=== PATIENT | male | born 1930 | race Two or more races ===

== ENCOUNTER 2016-03-21 21:13 | Inpatient (IN) | payer MEDICARE, OTHER ==
[~2016-03-21] VITALS: Ht 175.3 cm; Wt 67.1 kg
[2016-03-21 22:45] LABS: DIFF TOTAL % 100 %; EOSINOPHILS # (AUTO) 0.1 /CMM (0.0-0.7); EOSINOPHILS % (AUTO) 2.6 % (0.0-6.0); HEMATOCRIT 27 % (39-51); LYMPHOCYTES # (AUTO) 0.8 /CMM (0.8-4.8); MEAN CORPUSCULAR HEMOGLOBIN 30 PG (26.0-33.0); MEAN CORPUSCULAR HGB CONC 33 g/dl (31.0-36.0); MEAN CORPUSCULAR VOLUME 91 fL (80-96); MONOCYTES # (AUTO) 0.2 /CMM (0.1-1.30); MONOCYTES % (AUTO) 3.6 % (2.0-12.0); NEUTROPHILS # (AUTO) 3.5 /CMM (1.8-8.9); NEUTROPHILS % (AUTO) 75.8 % (43.0-81.0); PLATELET COUNT (AUTO) 103 /CMM (150-450); RED BLOOD CELL COUNT(AUTO) 2.95 MIL/uL (4.5-6.0); WHITE BLOOD COUNT (AUTO) 4.6 K/uL (4.3-11.0)
[2016-03-21 23:01] LABS: INR 1.11 (0.87-1.13); TROPONIN I < 0.017 ng/mL (0.00-0.056)
[2016-03-21 23:06] LABS: ALANINE AMINOTRANSFERASE 50 U/L (12-78); ALBUMIN 2.6 g/dL (3.4-5.0); ANION GAP 10 (5-14); ASPARTATE AMINOTRANSFERASE 36 U/L (15-37); BILIRUBIN,DIRECT 0.1 mg/dL (0.0-0.2); BILIRUBIN,TOTAL 0.2 mg/dL (0.2-1.0); CALCIUM, SERUM 8.5 mg/dL (8.5-10.1); CARBON DIOXIDE 28 mmol/L (21-32); CHLORIDE 112 mmol/L (98-107); CREATININE 2.6 mg/dL (0.6-1.3); GLUCOSE 163 mg/dL (74-106); INDIRECT BILIRUBIN 0.1 mg/dL (0.0-1.1); SODIUM SERUM 144 mmol/L (136-145); TOTAL PROTEIN, SERUM 7.1 g/dL (6.4-8.2); UREA NITROGEN, BLOOD 36 mg/dL (7-18)
[2016-03-21 23:07] LABS: POTASSIUM 6.5 mmol/L (3.5-5.1)
[2016-03-21] MEDS ORDERED: LEVOFLOXACIN 500 MG /D5W 100ML 100 ML IV ONE (23:12)
[2016-03-21] MEDS ORDERED: SODIUM BICARBONATE SYR 50 MEQ/50 ML DISP.SYRIN ONE (23:12)
[2016-03-21] MEDS ORDERED: DEXTROSE 50%-WATER 50 ML DISP.SYRIN ONE (23:12)
[2016-03-21] MEDS ORDERED: IV SET PRIMARY PUMP SET 1 EA INFUS.SET MC ONE (23:12)
[2016-03-21] MEDS ORDERED: INSULIN REGULAR, HUMAN 100 UNIT/ML 10 ML VIAL ONE (23:12)
[2016-03-21] MEDS ORDERED: ALBUTEROL FS 2.5 MG/3 ML VIAL.NEB ONE (23:17)
[2016-03-21] MEDS ORDERED: DEXTROSE 50%-WATER 50 ML DISP.SYRIN IV ONE (23:30)
[2016-03-21] MEDS ORDERED: INSULIN REGULAR, HUMAN 100 UNIT/ML 10 ML VIAL IV ONE (23:30)
[2016-03-21] MEDS ORDERED: SODIUM BICARBONATE SYR 50 MEQ/50 ML DISP.SYRIN IV ONE (23:30)
[2016-03-21] MEDS ORDERED: ALBUTEROL FS 2.5 MG/3 ML VIAL.NEB NEB ONE (23:30)
[2016-03-21] MEDS ORDERED: LEVOFLOXACIN 500 MG /D5W 100ML 500 MG/100 ML PIGGYBACK IV ONE (23:30)
[2016-03-21 23:39] LABS: ABG BASE EXCESS 1.5 mmol/L; ABG HCO3 26.4 mmol/L; ABG PCO2 43.3 mmHg (35.0-45.0); ABG PH 7.403 (7.350-7.450); ABG PO2 89.4 mmHg (75.0-100.0); ABG TOTAL HEMOGLOBIN 8.6 G/dL (13.5-18.0); ALLEN TEST Pass; AaDO2 8.5 mmHg
[2016-03-21] MEDS ORDERED: DIVA500T2 PO (23:43)
[2016-03-21] MEDS ORDERED: MEMA5TAB PO (23:43)
[2016-03-21] MEDS ORDERED: RISP0.5T2 PO (23:43)
[2016-03-21] MEDS ORDERED: EZET10TA PO (23:43)
[2016-03-21] MEDS ORDERED: ASPI81TA2 PO (23:43)
[2016-03-21] MEDS ORDERED: MELA3TAB PO (23:43)
[2016-03-21] MEDS ORDERED: MULT-70 PO (23:43)
[2016-03-21] MEDS ORDERED: *INS REG3 SQ (23:43)
[2016-03-21] MEDS ORDERED: ASCO500C16 PO (23:43)
[2016-03-21] MEDS ORDERED: LATA2.5D2 EACHEYE (23:43)
[2016-03-21] MEDS ORDERED: ATOR10TA PO (23:43)
[2016-03-21] MEDS ORDERED: FERR-58 PO (23:43)
[2016-03-21] MEDS ORDERED: BISA10SU61 RC (23:43)
[2016-03-21] MEDS ORDERED: ACET-868 PO ×2 (23:43)
[2016-03-21] MEDS ORDERED: LORA-258 PO (23:43)
[2016-03-21] MEDS ORDERED: FINA5TAB4 PO (23:43)
[2016-03-21] MEDS ORDERED: TAMS-12 PO (23:43)
[2016-03-22] VITALS (44 sets, daily range): BP systolic 95–156; BP diastolic 42–106
[2016-03-22] MEDS ORDERED: FUROSEMIDE 40 MG/4 ML VIAL IV ONE (01:00)
[2016-03-22] MEDS ORDERED: ONDANSETRON HCL/PF 4 MG/2 ML VIAL IV PRN (01:00)
[2016-03-22] MEDS ORDERED: ZOLPIDEM TARTRATE 5 MG TABLET PO PRN (01:00)
[2016-03-22] MEDS ORDERED: SODIUM POLYSTYRENE SULFONATE 15 G/60 ML BOTTLE PO ONE ×2 (01:00→15:00)
[2016-03-22] MEDS ORDERED: FUROSEMIDE 40 MG/4 ML VIAL ONE (01:23)
[2016-03-22] MEDS ORDERED: IV D5W 1,000 ML IV ONE (01:24)
[2016-03-22] MEDS ORDERED: SODIUM POLYSTYRENE SULFONATE 15 G/60 ML BOTTLE ONE (01:24)
[2016-03-22] MEDS ORDERED: SODIUM BICARBONATE SYR 50 MEQ/50 ML DISP.SYRIN ONE (01:24)
[2016-03-22] MEDS ORDERED: IV SET PRIMARY PUMP SET 1 EA INFUS.SET MC ONE (01:31)
[2016-03-22] MEDS: Sodium Bicarbonate 100 MEQ in IV D5W 1,000 ML IV PRN ×2 (01:37→12:52)
[2016-03-22 02:37] LABS: CALCIUM, SERUM 8.2 mg/dL (8.5-10.1); CREATININE 2.5 mg/dL (0.6-1.3); POTASSIUM 5.5 mmol/L (3.5-5.1)
[2016-03-22 05:05] LABS: BASOPHILS % (AUTO) 0.1 % (0.0-2.0); DIFF TOTAL % 100 %; EOSINOPHILS # (AUTO) 0.1 /CMM (0.0-0.7); EOSINOPHILS % (AUTO) 1.4 % (0.0-6.0); HEMATOCRIT 25 % (39-51); HEMOGLOBIN 8.2 g/dL (13.5-17.5); LYMPHOCYTES # (AUTO) 0.5 /CMM (0.8-4.8); LYMPHOCYTES % (AUTO) 9.2 % (20.0-44.0); MEAN CORPUSCULAR HEMOGLOBIN 31 PG (26.0-33.0); MEAN CORPUSCULAR HGB CONC 33 g/dl (31.0-36.0); MEAN CORPUSCULAR VOLUME 92 fL (80-96); MONOCYTES # (AUTO) 0.2 /CMM (0.1-1.30); MONOCYTES % (AUTO) 3.5 % (2.0-12.0); NEUTROPHILS # (AUTO) 4.8 /CMM (1.8-8.9); NEUTROPHILS % (AUTO) 85.8 % (43.0-81.0); PLATELET COUNT (AUTO) 107 /CMM (150-450); RED BLOOD CELL COUNT(AUTO) 2.69 MIL/uL (4.5-6.0); WHITE BLOOD COUNT (AUTO) 5.6 K/uL (4.3-11.0)
[2016-03-22 05:26] LABS: ALBUMIN 2.4 g/dL (3.4-5.0); BILIRUBIN,TOTAL 0.3 mg/dL (0.2-1.0); CALCIUM, SERUM 8.2 mg/dL (8.5-10.1); CREATININE 2.6 mg/dL (0.6-1.3); PHOSPHORUS 3.5 mg/dL (2.5-4.9); POTASSIUM 5.3 mmol/L (3.5-5.1); TOTAL PROTEIN, SERUM 6.8 g/dL (6.4-8.2)
[2016-03-22] MEDS: BLOOD SUGAR DIAGNOSTIC 1 EACH STRIP IN SCH ×4 (07:49→21:39)
[2016-03-22] MEDS ORDERED: DIVA250T6 PO (09:07)
[2016-03-22] MEDS ORDERED: MULT-659 PO (09:07)
[2016-03-22] MEDS ORDERED: DOCU-25 PO (09:07)
[2016-03-22] MEDS ORDERED: RISP0.2515 PO (09:07)
[2016-03-22 10:44] LABS: KETONES,URINE NEGATIVE (NEGATIVE); LEUKOCYTE ESTERASE ,URINE 3+ (NEGATIVE); PH,URINE 6.5 (5.0-8.0)
[2016-03-22 10:45] LABS: ADD UA MICROSCOPIC YES
[2016-03-22 10:54] LABS: ADD URINE CULTURE YES
[2016-03-22] MEDS ORDERED: LEVOFLOXACIN 500 MG /D5W 100ML 500 MG in PREMIX 1 EA IV SCH (15:00)
[2016-03-22] MEDS: ATORVASTATIN 10 MG TABLET PO SCH (22:15)
[2016-03-22] MEDS: LEVOFLOXACIN 250 MG /D5W 50 ML 250 MG in PREMIX 1 EA IV SCH (22:16)
[2016-03-22] MEDS ORDERED: SECONDARY IV SET 1 EA INFUS.SET MC ONE (22:21)
[2016-03-23] VITALS (37 sets, daily range): BP systolic 76–125; BP diastolic 33–68
[2016-03-23] MEDS: Sodium Bicarbonate 100 MEQ in IV D5W 1,000 ML IV PRN (04:08)
[2016-03-23 05:20] LABS: BASOPHILS % (AUTO) 0.1 % (0.0-2.0); DIFF TOTAL % 100 %; EOSINOPHILS % (AUTO) 0.3 % (0.0-6.0); HEMATOCRIT 28 % (39-51); HEMOGLOBIN 9.3 g/dL (13.5-17.5); LYMPHOCYTES # (AUTO) 0.6 /CMM (0.8-4.8); LYMPHOCYTES % (AUTO) 5.5 % (20.0-44.0); MEAN CORPUSCULAR HEMOGLOBIN 30 PG (26.0-33.0); MEAN CORPUSCULAR HGB CONC 33 g/dl (31.0-36.0); MEAN CORPUSCULAR VOLUME 92 fL (80-96); MONOCYTES # (AUTO) 0.3 /CMM (0.1-1.30); MONOCYTES % (AUTO) 3.1 % (2.0-12.0); NEUTROPHILS # (AUTO) 9.3 /CMM (1.8-8.9); PLATELET COUNT (AUTO) 118 /CMM (150-450); RED BLOOD CELL COUNT(AUTO) 3.08 MIL/uL (4.5-6.0); WHITE BLOOD COUNT (AUTO) 10.2 K/uL (4.3-11.0)
[2016-03-23 05:32] LABS: CALCIUM, SERUM 7.5 mg/dL (8.5-10.1); CREATININE 2.5 mg/dL (0.6-1.3); PHOSPHORUS 3.2 mg/dL (2.5-4.9); POTASSIUM 3.9 mmol/L (3.5-5.1)
[2016-03-23] MEDS: BLOOD SUGAR DIAGNOSTIC 1 EACH STRIP IN SCH ×4 (06:45→21:46)
[2016-03-23] MEDS: ASPIRIN 81 MG TAB.CHEW PO SCH (09:12)
[2016-03-23] MEDS ORDERED: IV NS 0.9% 1,000 ML IV PRN (09:54)
[2016-03-23] MEDS ORDERED: Magnesium 1GM/D5W 100ML PREMIX 100 ML IV SCH (12:00)
[2016-03-23] MEDS: Z GUARD REMEDY 2 OZ OINT TP PRN (12:50)
[2016-03-23] MEDS: DEXTROSE 50%-WATER 50 ML DISP.SYRIN IV PRN ×3 (12:51→17:48)
[2016-03-23] MEDS: Z GUARD REMEDY 2 OZ OINT TP SCH (12:51)
[2016-03-23] MEDS ORDERED: IV NS 0.9% 500 ML IV ONE (14:30)
[2016-03-23] MEDS ORDERED: NOREPINEPHRINE 8 MG in IV D5W 500 ML IV PRN (14:30)
[2016-03-23] MEDS: IV D5/ 0.9% NACL 1,000 ML IV PRN (19:11)
[2016-03-23] MEDS: ATORVASTATIN 10 MG TABLET PO SCH (21:46)
[2016-03-23] MEDS: LEVOFLOXACIN 250 MG /D5W 50 ML 250 MG in PREMIX 1 EA IV SCH (23:50)
[2016-03-24] VITALS (30 sets, daily range): BP systolic 99–146; BP diastolic 36–77
[2016-03-24] MEDS ORDERED: ATROPINE SULFATE 1 MG/10 ML DISP.SYRIN IV PRN
[2016-03-24 04:52] LABS: BASOPHILS % (AUTO) 0.2 % (0.0-2.0); DIFF TOTAL % 100 %; EOSINOPHILS % (AUTO) 0.2 % (0.0-6.0); HEMATOCRIT 24 % (39-51); LYMPHOCYTES # (AUTO) 1.1 /CMM (0.8-4.8); LYMPHOCYTES % (AUTO) 10.5 % (20.0-44.0); MEAN CORPUSCULAR HEMOGLOBIN 30 PG (26.0-33.0); MEAN CORPUSCULAR HGB CONC 33 g/dl (31.0-36.0); MEAN CORPUSCULAR VOLUME 91 fL (80-96); MONOCYTES # (AUTO) 0.2 /CMM (0.1-1.30); MONOCYTES % (AUTO) 2.2 % (2.0-12.0); NEUTROPHILS # (AUTO) 9.1 /CMM (1.8-8.9); NEUTROPHILS % (AUTO) 86.9 % (43.0-81.0); PLATELET COUNT (AUTO) 91 /CMM (150-450); RED BLOOD CELL COUNT(AUTO) 2.66 MIL/uL (4.5-6.0); WHITE BLOOD COUNT (AUTO) 10.5 K/uL (4.3-11.0)
[2016-03-24 05:09] LABS: CREATININE 2.4 mg/dL (0.6-1.3); PHOSPHORUS 3.6 mg/dL (2.5-4.9)
[2016-03-24 05:18] LABS: BAND % (MANUAL) 9 % (0.0-5.0); EOSINOPHILS % (MANUAL) 1 % (0-4); LYMPHOCYTES % (MANUAL) 15 % (16-48)
[2016-03-24 05:19] LABS: ANISOCYTOSIS 1+
[2016-03-24 05:23] LABS: PLATELET ESTIMATE DECREASED
[2016-03-24] MEDS: BLOOD SUGAR DIAGNOSTIC 1 EACH STRIP IN SCH ×4 (07:53→21:39)
[2016-03-24] MEDS: Z GUARD REMEDY 2 OZ OINT TP SCH (09:31)
[2016-03-24] MEDS: ASPIRIN 81 MG TAB.CHEW PO SCH (09:31)
[2016-03-24] MEDS: IV D5/ 0.9% NACL 1,000 ML IV PRN (09:58)
[2016-03-24] MEDS: IV D5/0.45 NACL 1,000 ML IV PRN (11:20)
[2016-03-24] MEDS: POTASSIUM CL. PREMIX PERIPHER. 50 ML IV SCH ×2 (11:20→12:24)
[2016-03-24] MEDS: MUPIROCIN OINT 2% 22 GM TUBE TP SCH ×2 (12:23→22:10)
[2016-03-24] MEDS: ATORVASTATIN 10 MG TABLET PO SCH (21:41)
[2016-03-24] MEDS: LEVOFLOXACIN 250 MG /D5W 50 ML 250 MG in PREMIX 1 EA IV SCH (22:10)
[2016-03-25] VITALS (30 sets, daily range): BP systolic 119–175; BP diastolic 48–98
[2016-03-25] MEDS: IV D5/0.45 NACL 1,000 ML IV PRN ×2 (04:24→20:47)
[2016-03-25 04:33] LABS: BASOPHILS % (AUTO) 0.2 % (0.0-2.0); DIFF TOTAL % 100 %; EOSINOPHILS % (AUTO) 0.2 % (0.0-6.0); HEMATOCRIT 24 % (39-51); HEMOGLOBIN 7.9 g/dL (13.5-17.5); LYMPHOCYTES % (AUTO) 11.3 % (20.0-44.0); MEAN CORPUSCULAR HEMOGLOBIN 30 PG (26.0-33.0); MEAN CORPUSCULAR HGB CONC 33 g/dl (31.0-36.0); MEAN CORPUSCULAR VOLUME 90 fL (80-96); MONOCYTES # (AUTO) 0.4 /CMM (0.1-1.30); NEUTROPHILS # (AUTO) 7.5 /CMM (1.8-8.9); NEUTROPHILS % (AUTO) 84.3 % (43.0-81.0); PLATELET COUNT (AUTO) 98 /CMM (150-450); RED BLOOD CELL COUNT(AUTO) 2.64 MIL/uL (4.5-6.0); WHITE BLOOD COUNT (AUTO) 8.9 K/uL (4.3-11.0)
[2016-03-25 05:00] LABS: CALCIUM, SERUM 7.4 mg/dL (8.5-10.1); CREATININE 2.2 mg/dL (0.6-1.3); PHOSPHORUS 2.9 mg/dL (2.5-4.9)
[2016-03-25 05:27] LABS: BAND % (MANUAL) 4 % (0.0-5.0); EOSINOPHILS % (MANUAL) 1 % (0-4); LYMPHOCYTES % (MANUAL) 7 % (16-48); PLATELET ESTIMATE DECREASED
[2016-03-25 05:28] LABS: ANISOCYTOSIS 1+
[2016-03-25] MEDS: BLOOD SUGAR DIAGNOSTIC 1 EACH STRIP IN SCH ×4 (08:16→20:49)
[2016-03-25] MEDS: ASPIRIN 81 MG TAB.CHEW PO SCH (08:30)
[2016-03-25] MEDS: Z GUARD REMEDY 2 OZ OINT TP SCH (08:31)
[2016-03-25] MEDS: Z GUARD REMEDY 2 OZ OINT TP PRN (08:31)
[2016-03-25] MEDS ORDERED: POTASSIUM CHLORIDE 20 MEQ POWDER PACKET GT ONE (09:30)
[2016-03-25] MEDS ORDERED: SECONDARY IV SET 1 EA INFUS.SET MC ONE ×2 (10:01→11:14)
[2016-03-25] MEDS: Magnesium 1GM/D5W 100ML PREMIX 100 ML IV SCH ×3 (10:11→13:31)
[2016-03-25] MEDS: MUPIROCIN OINT 2% 22 GM TUBE TP SCH ×2 (10:11→22:26)
[2016-03-25] MEDS ORDERED: POTASSIUM CL. PREMIX PERIPHER. 50 ML IV SCH (11:00)
[2016-03-25] MEDS: MEROPENEM 500 MG in IV NS 0.9% 50 ML IV SCH ×2 (11:14→22:25)
[2016-03-25 12:47] LABS: INR 1.11 (0.87-1.13)
[2016-03-25] MEDS: INSULIN REGULAR, HUMAN 100 UNIT/ML 3 ML VIAL SQ PRN (13:34)
[2016-03-25] MEDS ORDERED: IPRATROPIUM NEB FS 0.5 MG/2.5 ML AMPUL.NEB NEB PRN (14:30)
[2016-03-25] MEDS ORDERED: ALBUTEROL FS 2.5 MG/3 ML VIAL.NEB NEB PRN (14:30)
[2016-03-25] MEDS: ATORVASTATIN 10 MG TABLET PO SCH (20:49)
[2016-03-26] VITALS (41 sets, daily range): BP systolic 119–176; BP diastolic 52–149
[2016-03-26 05:54] LABS: BASOPHILS # (AUTO) 0.1 /CMM (0.0-0.2); BASOPHILS % (AUTO) 0.8 % (0.0-2.0); DIFF TOTAL % 100 %; EOSINOPHILS % (AUTO) 0.2 % (0.0-6.0); HEMATOCRIT 23 % (39-51); HEMOGLOBIN 7.6 g/dL (13.5-17.5); LYMPHOCYTES # (AUTO) 1.2 /CMM (0.8-4.8); LYMPHOCYTES % (AUTO) 10.2 % (20.0-44.0); MEAN CORPUSCULAR HEMOGLOBIN 29 PG (26.0-33.0); MEAN CORPUSCULAR HGB CONC 33 g/dl (31.0-36.0); MEAN CORPUSCULAR VOLUME 90 fL (80-96); MONOCYTES # (AUTO) 0.2 /CMM (0.1-1.30); MONOCYTES % (AUTO) 1.5 % (2.0-12.0); NEUTROPHILS # (AUTO) 10.3 /CMM (1.8-8.9); NEUTROPHILS % (AUTO) 87.3 % (43.0-81.0); PLATELET COUNT (AUTO) 120 /CMM (150-450); RED BLOOD CELL COUNT(AUTO) 2.62 MIL/uL (4.5-6.0); WHITE BLOOD COUNT (AUTO) 11.8 K/uL (4.3-11.0)
[2016-03-26 06:02] LABS: CALCIUM, SERUM 7.7 mg/dL (8.5-10.1); CREATININE 2.2 mg/dL (0.6-1.3); PHOSPHORUS 2.7 mg/dL (2.5-4.9); POTASSIUM 3.4 mmol/L (3.5-5.1)
[2016-03-26] MEDS ORDERED: LIDOCAINE HCL/PF 1% 30 ML SDV ONE (07:21)
[2016-03-26] MEDS: BLOOD SUGAR DIAGNOSTIC 1 EACH STRIP IN SCH ×4 (07:30→22:08)
[2016-03-26] MEDS ORDERED: IOHEXOL 240MG/ML 0 ML IV ONE (08:22)
[2016-03-26] MEDS: Z GUARD REMEDY 2 OZ OINT TP SCH ×2 (10:19→11:34)
[2016-03-26] MEDS: ASPIRIN 81 MG TAB.CHEW PO SCH (10:19)
[2016-03-26] MEDS: DOXYCYCLINE 100 MG in IV D5W 100 ML IV SCH ×2 (10:19→21:08)
[2016-03-26 10:20] LABS: ABG BASE EXCESS 0.7 mmol/L; ABG HCO3 25.5 mmol/L; ABG PCO2 41.8 mmHg (35.0-45.0); ABG PH 7.404 (7.350-7.450); ABG PO2 64.9 mmHg (75.0-100.0); ABG TOTAL HEMOGLOBIN 11.6 G/dL (13.5-18.0); ALLEN TEST Pass; AaDO2 143.3 mmHg; O2Hb 89.2 % (94.0-97.0)
[2016-03-26] MEDS: MEROPENEM 500 MG in IV NS 0.9% 50 ML IV SCH ×2 (11:34→22:14)
[2016-03-26] MEDS: MUPIROCIN OINT 2% 22 GM TUBE TP SCH ×2 (11:34→22:14)
[2016-03-26] MEDS ORDERED: EPOETIN ALFA (20,000 UNIT) 20,000 UNIT/ML VIAL SQ ONE (12:00)
[2016-03-26 12:48] LABS: IRON, SERUM 20 ug/dl (50-175); PERCENT SATURATION 8 % (14-33); TOTAL IRON BINDING CAPACITY 244 ug/dl (250-450)
[2016-03-26] MEDS: IV D5/0.45 NACL 1,000 ML IV PRN (14:11)
[2016-03-26] MEDS ORDERED: POTASSIUM CL. PREMIX PERIPHER. 50 ML IV SCH (15:00)
[2016-03-26] MEDS ORDERED: FUROSEMIDE 40 MG/4 ML VIAL IV ONE (21:00)
[2016-03-26] MEDS ORDERED: FUROSEMIDE 40 MG/4 ML VIAL IV SCH (21:00)
[2016-03-26] MEDS ORDERED: FUROSEMIDE 40 MG/4 ML VIAL ONE (21:01)
[2016-03-26] MEDS: ATORVASTATIN 10 MG TABLET PO SCH (22:00)
[2016-03-26] MEDS: INSULIN REGULAR, HUMAN 100 UNIT/ML 3 ML VIAL SQ PRN (22:11)
[2016-03-27] VITALS (34 sets, daily range): BP systolic 97–169; BP diastolic 34–83
[2016-03-27 04:59] LABS: DIFF TOTAL % 100 %; HEMATOCRIT 24 % (39-51); HEMOGLOBIN 7.9 g/dL (13.5-17.5); LYMPHOCYTES # (AUTO) 0.8 /CMM (0.8-4.8); LYMPHOCYTES % (AUTO) 3.9 % (20.0-44.0); MEAN CORPUSCULAR HEMOGLOBIN 30 PG (26.0-33.0); MEAN CORPUSCULAR HGB CONC 33 g/dl (31.0-36.0); MEAN CORPUSCULAR VOLUME 90 fL (80-96); MONOCYTES # (AUTO) 0.6 /CMM (0.1-1.30); MONOCYTES % (AUTO) 2.9 % (2.0-12.0); NEUTROPHILS # (AUTO) 18.3 /CMM (1.8-8.9); NEUTROPHILS % (AUTO) 93.2 % (43.0-81.0); PLATELET COUNT (AUTO) 153 /CMM (150-450); RED BLOOD CELL COUNT(AUTO) 2.65 MIL/uL (4.5-6.0); WHITE BLOOD COUNT (AUTO) 19.6 K/uL (4.3-11.0)
[2016-03-27 05:25] LABS: CALCIUM, SERUM 7.8 mg/dL (8.5-10.1); PHOSPHORUS 3.1 mg/dL (2.5-4.9); POTASSIUM 3.2 mmol/L (3.5-5.1)
[2016-03-27] MEDS: IV D5/0.45 NACL 1,000 ML IV PRN ×2 (06:16→22:59)
[2016-03-27] MEDS: BLOOD SUGAR DIAGNOSTIC 1 EACH STRIP IN SCH ×4 (08:09→22:59)
[2016-03-27] MEDS: DOXYCYCLINE 100 MG in IV D5W 100 ML IV SCH (08:10)
[2016-03-27] MEDS: ASPIRIN 81 MG TAB.CHEW PO SCH (09:57)
[2016-03-27] MEDS: MUPIROCIN OINT 2% 22 GM TUBE TP SCH ×2 (10:01→23:00)
[2016-03-27] MEDS: MEROPENEM 500 MG in IV NS 0.9% 50 ML IV SCH ×2 (10:01→22:59)
[2016-03-27] MEDS: ALBUTEROL FS 2.5 MG/3 ML VIAL.NEB NEB SCH ×4 (10:55→23:08)
[2016-03-27] MEDS: IPRATROPIUM NEB FS 0.5 MG/2.5 ML AMPUL.NEB NEB SCH ×4 (10:56→23:08)
[2016-03-27 14:56] LABS: ABG BASE EXCESS 4.4 mmol/L; ABG HCO3 28.2 mmol/L; ABG PCO2 38.5 mmHg (35.0-45.0); ABG PH 7.482 (7.350-7.450); ABG PO2 77.6 mmHg (75.0-100.0); ABG TOTAL HEMOGLOBIN 7.9 G/dL (13.5-18.0); ALLEN TEST Pass; AaDO2 307.9 mmHg; O2Hb 92.8 % (94.0-97.0)
[2016-03-27] MEDS: ACETYLCYSTEINE 10% SOLN 400 MG/4 ML VIAL NEB SCH ×2 (15:08→23:08)
[2016-03-27] MEDS: POTASSIUM CL. PREMIX PERIPHER. 50 ML IV SCH ×3 (15:09→17:20)
[2016-03-27] MEDS: INSULIN REGULAR, HUMAN 100 UNIT/ML 3 ML VIAL SQ PRN ×2 (17:31→23:08)
[2016-03-27] MEDS ORDERED: FEE PK DOSING 1 MIN EA MC ONE (19:38)
[2016-03-27] MEDS ORDERED: VANCOMYCIN 1 GM in IV D5W 250 ML IV SCH (21:00)
[2016-03-27] MEDS ORDERED: SECONDARY IV SET 1 EA INFUS.SET MC ONE (21:24)
[2016-03-27] MEDS: ATORVASTATIN 10 MG TABLET PO SCH (22:59)
[2016-03-28] VITALS (32 sets, daily range): BP systolic 97–163; BP diastolic 35–79
[2016-03-28] MEDS ORDERED: NALOXONE HCL 0.4 MG/ML AMPUL ONE ×2 (02:13)
[2016-03-28] MEDS ORDERED: IV D5W 0 ML IV ONE (02:13)
[2016-03-28] MEDS: ALBUTEROL FS 2.5 MG/3 ML VIAL.NEB NEB SCH ×6 (03:21→23:11)
[2016-03-28] MEDS: IPRATROPIUM NEB FS 0.5 MG/2.5 ML AMPUL.NEB NEB SCH ×6 (03:21→23:11)
[2016-03-28 04:52] LABS: BASOPHILS % (AUTO) 0.2 % (0.0-2.0); DIFF TOTAL % 100 %; EOSINOPHILS % (AUTO) 0.1 % (0.0-6.0); HEMATOCRIT 21 % (39-51); LYMPHOCYTES # (AUTO) 0.9 /CMM (0.8-4.8); LYMPHOCYTES % (AUTO) 7.5 % (20.0-44.0); MEAN CORPUSCULAR HEMOGLOBIN 30 PG (26.0-33.0); MEAN CORPUSCULAR HGB CONC 33 g/dl (31.0-36.0); MEAN CORPUSCULAR VOLUME 91 fL (80-96); MONOCYTES # (AUTO) 0.8 /CMM (0.1-1.30); MONOCYTES % (AUTO) 6.3 % (2.0-12.0); NEUTROPHILS # (AUTO) 10.4 /CMM (1.8-8.9); NEUTROPHILS % (AUTO) 85.9 % (43.0-81.0); PLATELET COUNT (AUTO) 130 /CMM (150-450); RED BLOOD CELL COUNT(AUTO) 2.26 MIL/uL (4.5-6.0); WHITE BLOOD COUNT (AUTO) 12.1 K/uL (4.3-11.0)
[2016-03-28 04:57] LABS: HEMOGLOBIN 6.8 g/dL (13.5-17.5)
[2016-03-28 05:03] LABS: CALCIUM, SERUM 7.6 mg/dL (8.5-10.1); CREATININE 2.4 mg/dL (0.6-1.3); PHOSPHORUS 3.4 mg/dL (2.5-4.9); POTASSIUM 3.3 mmol/L (3.5-5.1)
[2016-03-28 05:34] LABS: ANISOCYTOSIS 1+; BASOPHILS % (MANUAL) 0 % (0.0-2.0); EOSINOPHILS % (MANUAL) 0 % (0-4); LYMPHOCYTES % (MANUAL) 7 % (16-48); PLATELET ESTIMATE DECREASED; STOMATOCYTES 1+
[2016-03-28] MEDS: BLOOD SUGAR DIAGNOSTIC 1 EACH STRIP IN SCH ×4 (07:44→23:41)
[2016-03-28] MEDS: ACETYLCYSTEINE 10% SOLN 400 MG/4 ML VIAL NEB SCH ×3 (07:57→23:12)
[2016-03-28] MEDS: ASPIRIN 81 MG TAB.CHEW PO SCH (08:08)
[2016-03-28] MEDS: Z GUARD REMEDY 2 OZ OINT TP SCH (08:08)
[2016-03-28] MEDS: INSULIN REGULAR, HUMAN 100 UNIT/ML 3 ML VIAL SQ PRN ×2 (08:13→23:44)
[2016-03-28] MEDS ORDERED: SECONDARY IV SET 1 EA INFUS.SET MC ONE (09:53)
[2016-03-28] MEDS: POTASSIUM CL. PREMIX PERIPHER. 50 ML IV SCH ×2 (09:56→11:56)
[2016-03-28] MEDS: MUPIROCIN OINT 2% 22 GM TUBE TP SCH ×2 (10:22→23:45)
[2016-03-28] MEDS ORDERED: BLOOD IV SET 1 EA INFUS.SET MC ONE ×2 (10:35→21:19)
[2016-03-28] MEDS ORDERED: IV NS 0.9% 250 ML IV ONE ×3 (10:35→21:19)
[2016-03-28] MEDS: MEROPENEM 500 MG in IV NS 0.9% 50 ML IV SCH ×2 (11:06→23:42)
[2016-03-28] MEDS: ACETAMINOPHEN 325 MG TABLET PO PRN ×2 (11:56→21:34)
[2016-03-28] MEDS: VANCOMYCIN 0.75 GM in IV D5W 250 ML IV SCH (21:33)
[2016-03-28] MEDS: ATORVASTATIN 10 MG TABLET PO SCH (21:34)
[2016-03-29] VITALS (26 sets, daily range): BP systolic 126–170; BP diastolic 56–82
[2016-03-29] MEDS: ALBUTEROL FS 2.5 MG/3 ML VIAL.NEB NEB SCH ×6 (03:28→23:01)
[2016-03-29] MEDS: IPRATROPIUM NEB FS 0.5 MG/2.5 ML AMPUL.NEB NEB SCH ×6 (03:28→23:01)
[2016-03-29 05:02] LABS: DIFF TOTAL % 100 %; EOSINOPHILS % (AUTO) 0.2 % (0.0-6.0); HEMATOCRIT 31 % (39-51); HEMOGLOBIN 10.1 g/dL (13.5-17.5); LYMPHOCYTES # (AUTO) 0.6 /CMM (0.8-4.8); LYMPHOCYTES % (AUTO) 5.1 % (20.0-44.0); MEAN CORPUSCULAR HEMOGLOBIN 29 PG (26.0-33.0); MEAN CORPUSCULAR HGB CONC 33 g/dl (31.0-36.0); MEAN CORPUSCULAR VOLUME 89 fL (80-96); MONOCYTES # (AUTO) 0.5 /CMM (0.1-1.30); MONOCYTES % (AUTO) 4.5 % (2.0-12.0); NEUTROPHILS # (AUTO) 10.9 /CMM (1.8-8.9); NEUTROPHILS % (AUTO) 90.2 % (43.0-81.0); PLATELET COUNT (AUTO) 177 /CMM (150-450); RED BLOOD CELL COUNT(AUTO) 3.45 MIL/uL (4.5-6.0); WHITE BLOOD COUNT (AUTO) 12.1 K/uL (4.3-11.0)
[2016-03-29 05:22] LABS: CALCIUM, SERUM 8.2 mg/dL (8.5-10.1); CREATININE 2.3 mg/dL (0.6-1.3); PHOSPHORUS 3.9 mg/dL (2.5-4.9)
[2016-03-29] MEDS: ACETYLCYSTEINE 10% SOLN 400 MG/4 ML VIAL NEB SCH ×3 (07:29→23:02)
[2016-03-29] MEDS: BLOOD SUGAR DIAGNOSTIC 1 EACH STRIP IN SCH ×4 (09:14→21:09)
[2016-03-29] MEDS: ASPIRIN 81 MG TAB.CHEW PO SCH (09:15)
[2016-03-29] MEDS: Z GUARD REMEDY 2 OZ OINT TP SCH (09:15)
[2016-03-29] MEDS ORDERED: ONDANSETRON HCL/PF 4 MG/2 ML VIAL IV PRN (09:30)
[2016-03-29] MEDS: MUPIROCIN OINT 2% 22 GM TUBE TP SCH ×2 (11:00→23:37)
[2016-03-29] MEDS: MEROPENEM 500 MG in IV NS 0.9% 50 ML IV SCH ×2 (11:34→23:37)
[2016-03-29] MEDS: METOPROLOL TARTRATE 25 MG TABLET PO SCH ×2 (14:53→21:00)
[2016-03-29] MEDS: IV D5/0.45 NACL 1,000 ML IV PRN (17:30)
[2016-03-29] MEDS: VANCOMYCIN 0.75 GM in IV D5W 250 ML IV SCH (21:07)
[2016-03-29] MEDS: ATORVASTATIN 10 MG TABLET PO SCH (21:08)
[2016-03-29] MEDS: HEPARIN SODIUM, PORCINE 5000 UNITS/1 ML VIAL SQ SCH (21:08)
[2016-03-30] VITALS (25 sets, daily range): BP systolic 139–173; BP diastolic 54–82
[2016-03-30] MEDS: ALBUTEROL FS 2.5 MG/3 ML VIAL.NEB NEB SCH ×6 (03:21→23:36)
[2016-03-30] MEDS: IPRATROPIUM NEB FS 0.5 MG/2.5 ML AMPUL.NEB NEB SCH ×6 (03:21→23:36)
[2016-03-30 04:56] LABS: DIFF TOTAL % 100 %; EOSINOPHILS % (AUTO) 0.2 % (0.0-6.0); HEMATOCRIT 31 % (39-51); HEMOGLOBIN 10.2 g/dL (13.5-17.5); LYMPHOCYTES # (AUTO) 0.5 /CMM (0.8-4.8); LYMPHOCYTES % (AUTO) 4.6 % (20.0-44.0); MEAN CORPUSCULAR HEMOGLOBIN 30 PG (26.0-33.0); MEAN CORPUSCULAR HGB CONC 33 g/dl (31.0-36.0); MEAN CORPUSCULAR VOLUME 90 fL (80-96); MONOCYTES # (AUTO) 0.6 /CMM (0.1-1.30); NEUTROPHILS % (AUTO) 90.2 % (43.0-81.0); PLATELET COUNT (AUTO) 258 /CMM (150-450); RED BLOOD CELL COUNT(AUTO) 3.45 MIL/uL (4.5-6.0); WHITE BLOOD COUNT (AUTO) 11.1 K/uL (4.3-11.0)
[2016-03-30 05:10] LABS: CALCIUM, SERUM 8.4 mg/dL (8.5-10.1); CREATININE 2.3 mg/dL (0.6-1.3); POTASSIUM 4.4 mmol/L (3.5-5.1)
[2016-03-30] MEDS ORDERED: PANTOPRAZOLE 40 MG TABLET.DR PO SCH (07:30)
[2016-03-30] MEDS: BLOOD SUGAR DIAGNOSTIC 1 EACH STRIP IN SCH ×4 (07:44→22:56)
[2016-03-30] MEDS: ACETYLCYSTEINE 10% SOLN 400 MG/4 ML VIAL NEB SCH ×3 (07:51→23:36)
[2016-03-30] MEDS: ASPIRIN 81 MG TAB.CHEW PO SCH (08:33)
[2016-03-30] MEDS: PANTOPRAZOLE 40 MG VIAL IV SCH (08:37)
[2016-03-30] MEDS: HEPARIN SODIUM, PORCINE 5000 UNITS/1 ML VIAL SQ SCH ×2 (08:38→21:11)
[2016-03-30] MEDS: Z GUARD REMEDY 2 OZ OINT TP SCH (08:44)
[2016-03-30] MEDS: METOPROLOL TARTRATE 25 MG TABLET PO SCH ×3 (08:44→21:10)
[2016-03-30] MEDS: MEROPENEM 500 MG in IV NS 0.9% 50 ML IV SCH ×2 (10:36→22:50)
[2016-03-30] MEDS: MUPIROCIN OINT 2% 22 GM TUBE TP SCH ×2 (10:39→22:51)
[2016-03-30] MEDS ORDERED: RENAL NOVASOURCE 1,000 ML BOTTLE GT PRN (12:00)
[2016-03-30] MEDS: IV D5/0.45 NACL 1,000 ML IV PRN (16:31)
[2016-03-30] MEDS: INSULIN REGULAR, HUMAN 100 UNIT/ML 3 ML VIAL SQ PRN ×2 (17:20→22:59)
[2016-03-30] MEDS: VANCOMYCIN 0.75 GM in IV D5W 250 ML IV SCH (21:09)
[2016-03-30] MEDS: ATORVASTATIN 10 MG TABLET PO SCH (21:10)
[2016-03-31] VITALS (25 sets, daily range): BP systolic 127–163; BP diastolic 54–80
[2016-03-31] MEDS: IPRATROPIUM NEB FS 0.5 MG/2.5 ML AMPUL.NEB NEB SCH ×5 (04:09→22:51)
[2016-03-31] MEDS: ALBUTEROL FS 2.5 MG/3 ML VIAL.NEB NEB SCH ×5 (04:09→22:51)
[2016-03-31 05:10] LABS: BASOPHILS % (AUTO) 0.1 % (0.0-2.0); DIFF TOTAL % 100 %; EOSINOPHILS # (AUTO) 0.1 /CMM (0.0-0.7); EOSINOPHILS % (AUTO) 0.9 % (0.0-6.0); HEMATOCRIT 30 % (39-51); LYMPHOCYTES # (AUTO) 0.6 /CMM (0.8-4.8); MEAN CORPUSCULAR HEMOGLOBIN 29 PG (26.0-33.0); MEAN CORPUSCULAR HGB CONC 33 g/dl (31.0-36.0); MEAN CORPUSCULAR VOLUME 89 fL (80-96); MONOCYTES # (AUTO) 0.5 /CMM (0.1-1.30); MONOCYTES % (AUTO) 4.5 % (2.0-12.0); NEUTROPHILS % (AUTO) 88.5 % (43.0-81.0); PLATELET COUNT (AUTO) 339 /CMM (150-450); WHITE BLOOD COUNT (AUTO) 10.2 K/uL (4.3-11.0)
[2016-03-31 05:15] LABS: CALCIUM, SERUM 7.9 mg/dL (8.5-10.1); CREATININE 2.1 mg/dL (0.6-1.3); PHOSPHORUS 3.3 mg/dL (2.5-4.9); POTASSIUM 4.1 mmol/L (3.5-5.1)
[2016-03-31] MEDS: PANTOPRAZOLE 40 MG VIAL IV SCH (08:00)
[2016-03-31] MEDS: ASPIRIN 81 MG TAB.CHEW PO SCH (08:00)
[2016-03-31] MEDS: METOPROLOL TARTRATE 25 MG TABLET PO SCH ×2 (08:00→20:27)
[2016-03-31] MEDS: Z GUARD REMEDY 2 OZ OINT TP SCH (08:01)
[2016-03-31] MEDS: BLOOD SUGAR DIAGNOSTIC 1 EACH STRIP IN SCH ×4 (08:01→23:23)
[2016-03-31] MEDS: INSULIN REGULAR, HUMAN 100 UNIT/ML 3 ML VIAL SQ PRN ×3 (08:04→23:24)
[2016-03-31] MEDS: HEPARIN SODIUM, PORCINE 5000 UNITS/1 ML VIAL SQ SCH (08:20)
[2016-03-31] MEDS: MUPIROCIN OINT 2% 22 GM TUBE TP SCH ×2 (10:13→23:25)
[2016-03-31] MEDS: MEROPENEM 500 MG in IV NS 0.9% 50 ML IV SCH ×2 (10:13→23:23)
[2016-03-31] MEDS ORDERED: DEXTROSE 50%-WATER 50 ML DISP.SYRIN IV PRN (10:30)
[2016-03-31] MEDS: ACETYLCYSTEINE 10% SOLN 400 MG/4 ML VIAL NEB SCH ×2 (16:19→22:51)
[2016-03-31] MEDS: VANCOMYCIN 0.75 GM in IV D5W 250 ML IV SCH (20:27)
[2016-03-31] MEDS: ATORVASTATIN 10 MG TABLET PO SCH (20:27)
[2016-03-31] MEDS ORDERED: IV SET PRIMARY PUMP SET 1 EA INFUS.SET MC ONE (20:30)
[2016-03-31] MEDS ORDERED: SECONDARY IV SET 1 EA INFUS.SET MC ONE (20:30)
[2016-03-31] MEDS ORDERED: IV NS 0.9% 250 ML IV ONE (20:30)
[2016-03-31] MEDS ORDERED: IV NS 0.9% 250 ML IV PRN (21:00)
[2016-04-01] VITALS (16 sets, daily range): BP systolic 42–161; BP diastolic 29–93
[2016-04-01] MEDS: ALBUTEROL FS 2.5 MG/3 ML VIAL.NEB NEB SCH ×2 (03:19→08:06)
[2016-04-01] MEDS: IPRATROPIUM NEB FS 0.5 MG/2.5 ML AMPUL.NEB NEB SCH ×2 (03:19→08:06)
[2016-04-01 04:31] LABS: DIFF TOTAL % 100 %; EOSINOPHILS % (AUTO) 0.4 % (0.0-6.0); HEMATOCRIT 30 % (39-51); HEMOGLOBIN 9.9 g/dL (13.5-17.5); LYMPHOCYTES # (AUTO) 0.7 /CMM (0.8-4.8); LYMPHOCYTES % (AUTO) 6.3 % (20.0-44.0); MEAN CORPUSCULAR HEMOGLOBIN 30 PG (26.0-33.0); MEAN CORPUSCULAR HGB CONC 33 g/dl (31.0-36.0); MEAN CORPUSCULAR VOLUME 90 fL (80-96); MONOCYTES # (AUTO) 0.5 /CMM (0.1-1.30); MONOCYTES % (AUTO) 4.5 % (2.0-12.0); NEUTROPHILS # (AUTO) 9.2 /CMM (1.8-8.9); NEUTROPHILS % (AUTO) 88.8 % (43.0-81.0); PLATELET COUNT (AUTO) 384 /CMM (150-450); RED BLOOD CELL COUNT(AUTO) 3.34 MIL/uL (4.5-6.0); WHITE BLOOD COUNT (AUTO) 10.4 K/uL (4.3-11.0)
[2016-04-01 04:42] LABS: CALCIUM, SERUM 7.8 mg/dL (8.5-10.1); CREATININE 2.2 mg/dL (0.6-1.3); PHOSPHORUS 2.7 mg/dL (2.5-4.9); POTASSIUM 4.1 mmol/L (3.5-5.1)
[2016-04-01] MEDS: BLOOD SUGAR DIAGNOSTIC 1 EACH STRIP IN SCH (05:39)
[2016-04-01] MEDS: INSULIN REGULAR, HUMAN 100 UNIT/ML 3 ML VIAL SQ PRN (05:41)
[2016-04-01] MEDS: ACETYLCYSTEINE 10% SOLN 400 MG/4 ML VIAL NEB SCH (08:06)
[2016-04-01] MEDS: PANTOPRAZOLE 40 MG VIAL IV SCH (08:22)
[2016-04-01] MEDS: ASPIRIN 81 MG TAB.CHEW PO SCH (08:23)
[2016-04-01] MEDS: METOPROLOL TARTRATE 25 MG TABLET PO SCH (08:23)
[2016-04-01] MEDS: Z GUARD REMEDY 2 OZ OINT TP SCH (08:24)
[2016-04-01] MEDS: MORPHINE SULFATE INJ 2 MG/ML DISP.SYRIN IV PRN ×2 (11:02→13:13)
[2016-04-01] MEDS: LORAZEPAM INJ 2 MG/ML VIAL IV PRN ×2 (11:36→13:54)
[2016-04-02] MEDS ORDERED: HEPARIN SODIUM, PORCINE 5000 UNITS/1 ML VIAL SQ SCH (09:00)
== END 2016-04-01 14:32 | disposition expired | DRG 242 ==
LOC: ER 21:24 → ICU 03-22 00:40
PROVIDERS: ADMIT Internal Medicine; ATTEND Internal Medicine
PROC: 02HV33Z Insertion of Infusion Device into Superior Vena Cava, Percutaneous Approach (ICD-10-PCS; 2016-03-23)
PROC: B548ZZA Ultrasonography of Superior Vena Cava, Guidance (ICD-10-PCS; 2016-03-23)
PROC: 02HK3JZ Insertion of Pacemaker Lead into Right Ventricle, Percutaneous Approach (ICD-10-PCS; 2016-03-26)
PROC: 02H63JZ Insertion of Pacemaker Lead into Right Atrium, Percutaneous Approach (ICD-10-PCS; 2016-03-26)
PROC: 0JH606Z Insertion of Pacemaker, Dual Chamber into Chest Subcutaneous Tissue and Fascia, Open Approach (ICD-10-PCS; principal; 2016-03-26 08:00)
PROC: 30233N1 Transfusion of Nonautologous Red Blood Cells into Peripheral Vein, Percutaneous Approach (ICD-10-PCS; 2016-03-28)
DX: I44.2 Atrioventricular block, complete (principal); G93.40 Encephalopathy, unspecified; N17.0 Acute kidney failure with tubular necrosis; J96.01 Acute respiratory failure with hypoxia; J69.0 Pneumonitis due to inhalation of food and vomit; J15.212 Pneumonia due to Methicillin resistant Staphylococcus aureus; N39.0 Urinary tract infection, site not specified; F02.81 Dementia in other diseases classified elsewhere, unspecified severity, with behavioral disturbance; Z51.5 Encounter for palliative care; I44.1 Atrioventricular block, second degree; D63.1 Anemia in chronic kidney disease; E11.22 Type 2 diabetes mellitus with diabetic chronic kidney disease; E78.5 Hyperlipidemia, unspecified; G30.9 Alzheimer's disease, unspecified; I12.9 Hypertensive chronic kidney disease with stage 1 through stage 4 chronic kidney disease, or unspecified chronic kidney disease; K21.9 Gastro-esophageal reflux disease without esophagitis; N18.9 Chronic kidney disease, unspecified; N40.1 Benign prostatic hyperplasia with lower urinary tract symptoms; Z86.73 Personal history of transient ischemic attack (TIA), and cerebral infarction without residual deficits; E87.5 Hyperkalemia; I25.10 Atherosclerotic heart disease of native coronary artery without angina pectoris; I48.91 Unspecified atrial fibrillation; I48.92 Unspecified atrial flutter; R13.10 Dysphagia, unspecified; Z87.440 Personal history of urinary (tract) infections; I95.9 Hypotension, unspecified; A49.8 Other bacterial infections of unspecified site; Z22.322 Carrier or suspected carrier of Methicillin resistant Staphylococcus aureus; S60.221A Contusion of right hand, initial encounter; X58.XXXA Exposure to other specified factors, initial encounter; Y93.9 Activity, unspecified; Y92.009 Unspecified place in unspecified non-institutional (private) residence as the place of occurrence of the external cause; Y99.9 Unspecified external cause status; R33.8 Other retention of urine; Z95.1 Presence of aortocoronary bypass graft
CPT/HCPCS: 31720; 36415; 36569; 36600; 70450-TC; 71010-TC; 76770-TC; 80048-TC; 80053-TC; 80076-TC; 80202-TC; 81000-TC; 82272-TC; 82570-TC; 82728-TC; 82803-TC; 82962-TC; 83540-TC; 83605-TC; 83735-TC; 83880; 84100-TC; 84300-TC; 84484-TC; 85025-TC; 85610-TC; 85730-TC; 86850-TC; 86901; 86921-TC; 87040-TC; 87070-TC; 87081-TC; 87086-TC; 87186-TC; 92521; 92526; 93307-TC; 94760-TC; 94799-TC; A4216; A4349; A4606; A4624; A6253; A6403; C1751; C9113; J0885; J1644; J1815; J1940; J1956; J2060; J2185; J2270; J2310; J3370; J3475; J3480; J3490; J7030; J7040; J7042; J7050; J7060; J7070; P9016-BL; Q9966; Z7610